=== PATIENT | male | born 1950 | race African-American/Black ===

== ENCOUNTER → 2019-12-29 | Outpatient (CLI) | payer OTHER ==
[~2019-12-29] MED LIST: NORCO 5-325 TA1 EAC2 PO; PRINIVIL40 MG PO
== END ==
LOC: M.LAB 14:33
PROVIDERS: ATTEND Surgery
DX: Z01.812 Encounter for preprocedural laboratory examination (principal); Z20.828 Contact with and (suspected) exposure to other viral communicable diseases; K40.90 Unilateral inguinal hernia, without obstruction or gangrene, not specified as recurrent

== ENCOUNTER 2020-01-03 06:27 | Inpatient (IN) | payer OTHER, MEDICARE ==
--- NOTE | ~2020-01-03 | OP ---
[facility] [address] [place] [address] OPERATIVE REPORT Name: CINDY ACKERMAN Room: [address] M.R.#: [id number] Admission: 01/03/20 Attend Phys: Boy Cohn Discharge: Date of : 54 Report #: [id number] THIS REPORT FOR: //name// cc: Maged Magaña Mohammad K. DO ~ CC: Boy Magaña DATE OF SERVICE: 01/03/2020 PREOPERATIVE DIAGNOSIS: Right inguinal hernia. POSTOPERATIVE DIAGNOSES: 1. Right inguinal hernia. 2. Cystotomy. 3. Sliding right inguinal hernia. OPERATIONS: 1. Laparoscopic right inguinal hernia repair. 2. Open repair of cystotomy. SURGEON: Boy Cohn MD MASK LAYOUT DESIGNER: Angélica Curry MD ANESTHESIA: General. ESTIMATED BLOOD LOSS: Minimal. SPECIMEN: Hernia sac. DESCRIPTION OF PROCEDURE: After informed consent was obtained, the patient was brought to the operating room and placed supine. SCDs were placed and working, preoperative antibiotics were administered, general anesthesia was induced. The abdomen was prepped and draped in the usual sterile fashion. Ohara catheter was placed. A 10 mm incision was made above the umbilicus. Fascia was incised and a trocar was placed. Pneumoperitoneum was established. Left and right lower quadrant 5 mm trocars were placed under direct vision. The peritoneum at the right ASIS was scored. It was then incised medially to the medial umbilical ligament and reflected inferiorly. This allowed visualization of the cord structures and the epigastric vessels. He had a very large direct hernia. I began by reducing this hernia. He had a very large cord lipoma. The cord structures were protected at all times. [address] [address] OPERATIVE REPORT Name: CINDY ACKERMAN Room: [address] Laura Porter#: [id number] Admission: 01/03/20 Attend Phys: Boy Cohn Discharge: Date of : 54 Report #: [id number] I was able to fully reduce the hernia contents. As I was dissecting away the hernia contents, I noticed epithelial tissue that appeared to be bladder. The Ohara catheter did insufflate with air. At this point, I suspected a cystotomy. Therefore, I called my partner, Dr. Angélica Curry at this point. We then began by making a laparotomy incision and a self-retaining Bookwalter retractor was placed. Unfortunately, there are no Urology services here at this facility and therefore, I was not able to call urologist to help as I normally would do under the circumstances. After the retractor was placed, I examined the right lower quadrant in the right pelvis. I could see the bladder. I began repair in 2 layers with a running 3-0 chromic suture to reapproximate the mucosa. I then imbricated the second layer over this with a 2-0 Vicryl to close the muscle. I then performed a leak test by instilling 200 mL of normal saline into the Ohara. This was a watertight. The saline was then released from the bladder and allowed to drain the catheter. The cystotomy having then repaired. The retractors were removed. I did not insert mesh into this area given the fact that it had been contaminated with urine. I was then able to dissect superiorly and I was able to identify the ureter. There was no injury to the ureter and I followed it down into the trigone of the bladder. The cystotomy was more toward the dome and injury to the ureterovesicular junction. I do not think injury to the ureterovesicular junction was likely. The retractor was removed. The midline fascia was closed with a running 0 PDS suture. Skin was closed with sue. Sterile dressings were applied. COMPLICATIONS: None. DISPOSITION: The patient was taken to recovery in satisfactory condition. By: [id number] Cohn MD /nathaly
[~2020-01-03 06:27] MED LIST changes: -NORCO 5-325 TA1 EAC2 PO
[2020-01-03 07:17] LABS: HEMATOCRIT 42.7 % (42.0-52.0); HEMOGLOBIN 14.5 gm/dL (14.0-18.0); MCH 28.4 pg (26.0-34.0); MCHC 33.9 g/dL (28.0-37.0); MCV 83.8 fL (80.0-100.0); MPV 9.7 fl. (7.2-11.1); RBC 5.09 mil/uL (4.50-6.00); RDW-CV 13.1 % (10.5-14.5)
[2020-01-03 07:26] LABS: CALCIUM 8.8 mg/dL (8.5-10.1); CREATININE 1.1 mg/dL (0.6-1.3); POTASSIUM 3.9 mmol/L (3.5-5.1)
[2020-01-03] MEDS ORDERED: NORCO 5-325 TA1 EAC2 PO (09:29)
[2020-01-03 18:05] VITALS: BP 132/89
--- NOTE | 2020-01-03 18:30 | EKG ---
[place] [address] ELECTROCARDIOGRAM REPORT Name: CINDY ACKERMAN Room: [address]R.#: [id number] Admission: 01/03/20 Attend Phys: Boy Calderon Discharge: Date of : 54 Date of Service: 01/03/20 0754 Report #: [id number] THIS REPORT FOR: //name// [facility] Test Date: 2020-01-03 Test Time: 07:54:46 Pat Name: CINDY ACKERMAN Department: Room: [facility] Gender: M Director Acute: RANI : 1950 Requested By: Boy Cohn Order Number: [id number] Reading MD: Scar Cosme Measurements Intervals [place] Rate: 69 P: 40 SC: 217 QRS: -28 QRSD: 85 T: 35 QT: 396 QTc: 425 Interpretive Statements Sinus rhythm Borderline prolonged SC interval Borderline left axis deviation Anteroseptal infarct, old, possible No previous ECG available for comparison Electronically Signed On 01-03-2020 18:30:15 CDT by Scar Cosme [email or web address] <ELECTRONICALLY SIGNED> By: Scar Cosme MD, FACC 01/03/20 1830 0754 0754 Scar Cosme MD, FAC /EPI
[2020-01-03 21:35] VITALS: BP 128/85
[2020-01-04 00:57] VITALS: BP 124/82
[2020-01-04 03:58] LABS: HEMATOCRIT 38.7 % (42.0-52.0); MCH 28.2 pg (26.0-34.0); MCHC 33.7 g/dL (28.0-37.0); MCV 83.6 fL (80.0-100.0); MPV 10.7 fl. (7.2-11.1); RBC 4.63 mil/uL (4.50-6.00); RDW-CV 12.7 % (10.5-14.5); WBC 10.5 thou/uL (4.0-11.0)
[2020-01-04 04:03] LABS: CALCIUM 8.2 mg/dL (8.5-10.1); CREATININE 1.4 mg/dL (0.6-1.3); POTASSIUM 3.9 mmol/L (3.5-5.1)
[2020-01-04 04:53] VITALS: BP 129/88
[2020-01-04 07:55] VITALS: BP 138/85
[2020-01-04 12:00] VITALS: BP 136/81
[2020-01-04 16:00] VITALS: BP 168/94
[2020-01-04 20:40] VITALS: BP 135/83
[2020-01-05 00:25] VITALS: BP 129/83
[2020-01-05 03:29] VITALS: BP 140/89
[2020-01-05 05:41] LABS: CALCIUM 8.4 mg/dL (8.5-10.1); CREATININE 1.1 mg/dL (0.6-1.3); POTASSIUM 3.9 mmol/L (3.5-5.1)
[2020-01-05 08:00] VITALS: BP 151/93
--- NOTE | 2020-01-05 17:06 | PATH ---
[address] [address] PATHOLOGY RPT PROCEDURE Name: DREW ABBASI Room: [address] [place] M.R.#: [id number] Admission: 01/05/20 Date of : 54 Discharge: Report #: [id number] Path Case #: [id number] [facility] Accession Number: [id number] . 01 Material submitted: . hernia - RIGHT INGUINAL HERNIA SAC AND CONTENTS. Modifiers: right, inguinal . 01 Clinical history: . RIGHT INGUINAL HERNIA . 02 Diagnosis: Tissue submitted as, "right inguinal hernia sac and contents": - Benign bladder tissue. (See comment) . (EVA:mml; 01/05/2020) [facility] 01/05/2020 1606 Local . 02 Comment: Review of Dr. Cohn's operative report, dated 01/03/2020, reveals postoperative diagnoses of right inguinal hernia, cystotomy and sliding right inguinal hernia. . (EVA:mml; 01/05/2020) . 02 Electronically signed: . Marcelo Gleason MD, Pathologist NPI- [id number] . 01 Gross description: . The specimen is received in formalin, labeled "Drew Abbasi, right inguinal hernia sac and contents". Received is a segment of shaggy fibroadipose tissue with a slight amount of possible attached fibromembranous tissue measuring 11.8 x 10.9 x 6.2 cm in greatest dimensions. No distinct nodules or lesions are noted grossly. The specimen is submitted representatively in cassette A1. (CAA; 01/04/2020) QAC/QAC 01/05/2020 1700 Local . 02 Pathologist provided ICD-10: K40.90 . 02 CPT . 286108 Specimen Comment: A courtesy copy of this report has been sent [phone] Specimen Comment: [phone] Specimen Comment: Report sent to ,DR LOWE / [place] [address] PATHOLOGY RPT PROCEDURE Name: DREW ABBASI Room: [address] [place] M.R.#: [id number] Admission: 01/05/20 Date of : 54 Discharge: Report #: [id number] Path Case #: [id number] Performed at: 01 [facility], [place], [place] [id number] MD Osmany Ruff MD Phone: [phone] Performed at: 02 [facility] [address], [place], [place] [id number] MD Marcelo Gleason MD Phone: [phone]
[2020-01-05 21:00] VITALS: BP 157/94
[2020-01-05 23:59] VITALS: BP 138/89
[2020-01-06] VITALS (7 sets, daily range): BP systolic 135–154; BP diastolic 90–100
[2020-01-06 04:35] LABS: CALCIUM 8.2 mg/dL (8.5-10.1); CREATININE 0.9 mg/dL (0.6-1.3); POTASSIUM 3.8 mmol/L (3.5-5.1)
[2020-01-06] MEDS ORDERED: NORCO 5-325 TA1 EAC2 PO (10:54)
[2020-01-06] MEDS ORDERED: CIPRO500 M1 PO (10:54)
[2020-01-06 16:52] LABS: HEMOGLOBIN 13.2 gm/dL (14.0-18.0); MCH 28.4 pg (26.0-34.0); MCV 83.7 fL (80.0-100.0); MPV 9.8 fl. (7.2-11.1); RBC 4.66 mil/uL (4.50-6.00); RDW-CV 12.9 % (10.5-14.5); WBC 8.6 thou/uL (4.0-11.0)
[2020-01-06 17:04] LABS: PROTIME 10.8 Seconds (9.20-11.50)
[2020-01-07 07:10] VITALS: BP 148/97
[2020-01-07 10:45] VITALS: BP 152/100
== END 2020-01-07 15:19 | disposition home health service (06) | DRG 352 ==
LOC: M.SUR 06:27 → M.ORTHSURG 17:40 → M.TBA-ER 17:40 → M.ORTHSURG 17:55
PROVIDERS: ADMIT Surgery; ATTEND Surgery
PROC: 0TWB0LZ Revision of Artificial Sphincter in Bladder, Open Approach (ICD-10-PCS; principal; 2020-01-05)
PROC: 0YU54JZ Supplement Right Inguinal Region with Synthetic Substitute, Percutaneous Endoscopic Approach (ICD-10-PCS; principal; 2020-01-05)
DX: K40.90 Unilateral inguinal hernia, without obstruction or gangrene, not specified as recurrent (principal); I10 Essential (primary) hypertension; Z79.899 Other long term (current) drug therapy